=== PATIENT | female | born 1985 | race Caucasian/White ===

== ENCOUNTER → 2020-09-22 | Outpatient (CLI) | payer OTHER ==
[~2020-09-22] MED LIST: LODINE CAP 300300 MG PO; PERCOCET 5/325 T1 EA PO
== END ==
LOC: KOH-I 10:08
DX: M54.5 Low back pain (principal); M51.37 Other intervertebral disc degeneration, lumbosacral region
CPT/HCPCS: 72148

== ENCOUNTER 2020-10-22 21:52 | Emergency (ER) | payer OTHER ==
[~2020-10-22 21:52] MED LIST changes: -PERCOCET 5/325 T1 EA PO
[2020-10-23 00:42] LABS: BUN/CREATININE RATIO 20 (0-10)
[2020-10-23 00:49] LABS: HEMOGLOBIN 13.9 gm/dl (12.3-15.3); RED BLOOD COUNT 4.65 M/UL (4.00-5.10); WHITE BLOOD COUNT 8.4 K/UL (4.5-11.0)
[2020-10-23] MEDS ORDERED: PERCOCET 5/325 T1 EA PO (01:42)
== END 2020-10-23 02:00 | disposition home or self-care (01) ==
LOC: ER1 21:52
PROVIDERS: Family Medicine
DX: S33.5XXA Sprain of ligaments of lumbar spine, initial encounter (principal); V49.9XXA Car occupant (driver) (passenger) injured in unspecified traffic accident, initial encounter
CPT/HCPCS: 36415; 70450; 71045; 72125; 72131; 80053; 85025; 96374; 96375; 99284

== ENCOUNTER → 2020-11-30 | Outpatient (CLI) | payer OTHER ==
[~2020-11-30] MED LIST changes: +PERCOCET 5/325 T1 EA PO
== END ==
LOC: KOH-I 12:21
DX: R05 Cough (principal); M54.2 Cervicalgia; M54.5 Low back pain; M54.6 Pain in thoracic spine; M25.512 Pain in left shoulder; M51.36 Other intervertebral disc degeneration, lumbar region; M48.061 Spinal stenosis, lumbar region without neurogenic claudication
CPT/HCPCS: 71046; 72050; 72070; 72100; 73030

== ENCOUNTER 2021-02-26 15:20 | Emergency (ER) | payer OTHER | END 2021-02-26 18:30 | disposition home or self-care (01) | LOC: ER1 15:20 | DX: S56.414A Strain of extensor muscle, fascia and tendon of left middle finger at forearm level, initial encounter (principal); S50.811A Abrasion of right forearm, initial encounter; R51.9 Headache, unspecified; Y92.410 Unspecified street and highway as the place of occurrence of the external cause; V49.40XA Driver injured in collision with unspecified motor vehicles in traffic accident, initial encounter; F17.290 Nicotine dependence, other tobacco product, uncomplicated | CPT/HCPCS: 70450; 73090; 73130; 99284 ==

== ENCOUNTER 2021-04-15 19:54 | Emergency (ER) | payer OTHER | END 2021-04-15 23:30 | disposition home or self-care (01) | LOC: ER1 19:54 | DX: H92.03 Otalgia, bilateral (principal); J02.9 Acute pharyngitis, unspecified; Z20.822 Contact with and (suspected) exposure to COVID-19; F17.290 Nicotine dependence, other tobacco product, uncomplicated | CPT/HCPCS: 87081; 87880; 99283; U0002 ==

== ENCOUNTER → 2021-05-04 | Outpatient (CLI) | payer OTHER | LOC: KOH-I 10:09 | DX: R22.1 Localized swelling, mass and lump, neck (principal); E04.1 Nontoxic single thyroid nodule | CPT/HCPCS: 76536 ==

== ENCOUNTER 2021-05-19 16:46 | Emergency (ER) | payer OTHER | END 2021-05-19 21:14 | disposition home or self-care (01) | LOC: ER1 16:46 | DX: Z23 Encounter for immunization (principal); U07.1 COVID-19; I10 Essential (primary) hypertension; F17.290 Nicotine dependence, other tobacco product, uncomplicated; Z90.49 Acquired absence of other specified parts of digestive tract | CPT/HCPCS: 71045; 84703; 93005; 99284; M0243 ==

== ENCOUNTER 2021-05-27 17:30 | Emergency (ER) | payer OTHER ==
[~2021-05-27] VITALS: Ht 160 cm; Wt 84.4 kg
== END 2021-05-27 19:12 | disposition home or self-care (01) ==
LOC: ER1 17:30
DX: U07.1 COVID-19 (principal); Z23 Encounter for immunization; F17.290 Nicotine dependence, other tobacco product, uncomplicated
CPT/HCPCS: 71045; 99284; M0243

== ENCOUNTER 2021-06-11 01:50 | Emergency (ER) | payer OTHER ==
[2021-06-11 04:26] LABS: HEMOGLOBIN 13.5 gm/dl (12.3-15.3); RED BLOOD COUNT 4.57 M/UL (4.00-5.10); WHITE BLOOD COUNT 8.9 K/UL (4.5-11.0)
[2021-06-11 04:43] LABS: BUN/CREATININE RATIO 16 (0-10)
[2021-06-11] MEDS ORDERED: MEDROL DOSEPAK 24 MG PO (04:58)
[2021-06-11] MEDS ORDERED: CORTIZONE-1057 G1 TP (04:58)
== END 2021-06-11 05:50 | disposition home or self-care (01) ==
LOC: ER1 01:50
PROVIDERS: Physician Assistant Medical
DX: S60.561A Insect bite (nonvenomous) of right hand, initial encounter (principal); R51.9 Headache, unspecified; W57.XXXA Bitten or stung by nonvenomous insect and other nonvenomous arthropods, initial encounter
CPT/HCPCS: 80053; 85025; 96374; 99284; J1885; J7030

== ENCOUNTER 2021-07-03 05:32 | Emergency (ER) | payer OTHER ==
[~2021-07-03 05:32] MED LIST changes: +CORTIZONE-1057 G1 TP; +MEDROL DOSEPAK 24 MG PO
[2021-07-03 08:15] LABS: HEMOGLOBIN 13.2 gm/dl (12.3-15.3); RED BLOOD COUNT 4.49 M/UL (4.00-5.10); WHITE BLOOD COUNT 7.1 K/UL (4.5-11.0)
[2021-07-03 08:35] LABS: BUN/CREATININE RATIO 18 (0-10)
[2021-07-03] MEDS ORDERED: ANAPROX DS550 MG PO (10:05)
[2021-07-03] MEDS ORDERED: ONDANSETRON ODT4 MG SL (10:05)
== END 2021-07-03 10:29 | disposition home or self-care (01) ==
LOC: ER1 05:32
PROVIDERS: Physician Assistant
DX: R51.9 Headache, unspecified (principal); H57.13 Ocular pain, bilateral; R10.30 Lower abdominal pain, unspecified; R09.81 Nasal congestion; F17.290 Nicotine dependence, other tobacco product, uncomplicated; Z20.822 Contact with and (suspected) exposure to COVID-19; Z96.0 Presence of urogenital implants; Z90.49 Acquired absence of other specified parts of digestive tract
CPT/HCPCS: 80048; 81001; 84703; 85025; 87086; 96372; 96374; 96375; 99283; J1200; J1885; J2765; J3030; J7030; U0002

== ENCOUNTER 2021-07-13 21:22 | Emergency (ER) | payer OTHER ==
[~2021-07-13 21:22] MED LIST changes: +ANAPROX DS550 MG PO; +ONDANSETRON ODT4 MG SL
[2021-07-14] MEDS ORDERED: MOBIC15 MG PO (01:36)
[2021-07-14] MEDS ORDERED: CYCLOBENZAPRINE10 MG PO (01:36)
== END 2021-07-14 02:22 | disposition home or self-care (01) ==
LOC: ER1 21:22
DX: S32.2XXA Fracture of coccyx, initial encounter for closed fracture (principal); S09.90XA Unspecified injury of head, initial encounter; S16.1XXA Strain of muscle, fascia and tendon at neck level, initial encounter; S20.229A Contusion of unspecified back wall of thorax, initial encounter; F17.290 Nicotine dependence, other tobacco product, uncomplicated; S40.011A Contusion of right shoulder, initial encounter; W10.9XXA Fall (on) (from) unspecified stairs and steps, initial encounter
CPT/HCPCS: 70450; 72072; 72100; 72125; 72220; 73030; 99284

== ENCOUNTER 2021-09-10 04:51 | Emergency (ER) | payer OTHER ==
[~2021-09-10 04:51] MED LIST changes: +CYCLOBENZAPRINE10 MG PO; +MOBIC15 MG PO
[2021-09-10] MEDS ORDERED: PHENERGAN 12.12.5 M1 PO (05:20)
== END 2021-09-10 05:47 | disposition home or self-care (01) ==
LOC: ER1 04:51
DX: R51.9 Headache, unspecified (principal); R03.0 Elevated blood-pressure reading, without diagnosis of hypertension; R11.0 Nausea; Z86.69 Personal history of other diseases of the nervous system and sense organs
CPT/HCPCS: 96372; 99283; J1885

== ENCOUNTER 2021-09-16 12:06 | Emergency (ER) | payer OTHER ==
[~2021-09-16 12:06] MED LIST changes: +PHENERGAN 12.12.5 M1 PO
[2021-09-16 14:45] LABS: HEMOGLOBIN 13.8 gm/dl (12.3-15.3); RED BLOOD COUNT 4.84 M/UL (4.00-5.10); WHITE BLOOD COUNT 7.1 K/UL (4.5-11.0)
[2021-09-16 15:10] LABS: BUN/CREATININE RATIO 24 (0-10)
[2021-09-16] MEDS ORDERED: AZITHROMYCIN250 MG PO (16:09)
== END 2021-09-16 16:17 | disposition home or self-care (01) ==
LOC: ER1 12:06
PROVIDERS: Emergency Medicine
DX: R05.9 Cough, unspecified (principal); E87.6 Hypokalemia; Z20.822 Contact with and (suspected) exposure to COVID-19; Z90.49 Acquired absence of other specified parts of digestive tract; F17.290 Nicotine dependence, other tobacco product, uncomplicated
CPT/HCPCS: 71046; 80053; 82550; 82553; 83874; 84484; 85025; 85379; 93005; 99283; U0002

== ENCOUNTER 2021-12-10 21:05 | Emergency (ER) | payer OTHER ==
[~2021-12-10 21:05] MED LIST changes: +AZITHROMYCIN250 MG PO
[2021-12-10 23:09] LABS: HEMOGLOBIN 13.4 gm/dl (12.3-15.3); RED BLOOD COUNT 4.54 M/UL (4.00-5.10); WHITE BLOOD COUNT 9.2 K/UL (4.5-11.0)
[2021-12-10 23:23] LABS: BUN/CREATININE RATIO 14 (0-10)
[2021-12-11] MEDS ORDERED: MACROBID 100 M100 MG PO (00:05)
[2021-12-11] MEDS ORDERED: ZOFRAN 4 MG TAB4 MG PO (00:06)
== END 2021-12-11 00:39 | disposition home or self-care (01) ==
LOC: ER1 21:05
PROVIDERS: Physician Assistant
DX: R05.9 Cough, unspecified (principal); N39.0 Urinary tract infection, site not specified; F17.290 Nicotine dependence, other tobacco product, uncomplicated; Z20.822 Contact with and (suspected) exposure to COVID-19
CPT/HCPCS: 0240U; 71045; 80053; 81001; 84703; 85025; 87086; 96374; 99283; J1885

== ENCOUNTER 2022-01-18 01:55 | Emergency (ER) | payer OTHER ==
[~2022-01-18 01:55] MED LIST changes: +MACROBID 100 M100 MG PO; +ZOFRAN 4 MG TAB4 MG PO
[2022-01-18 03:29] LABS: HEMOGLOBIN 13.6 gm/dl (12.3-15.3); RED BLOOD COUNT 4.65 M/UL (4.00-5.10); WHITE BLOOD COUNT 7.2 K/UL (4.5-11.0)
[2022-01-18 03:37] LABS: BUN/CREATININE RATIO 17 (0-10)
[2022-01-18] MEDS ORDERED: IBUPROFEN600 MG PO (04:59)
[2022-01-18] MEDS ORDERED: OMNICEF 300 MG300 MG PO (04:59)
== END 2022-01-18 05:55 | disposition home or self-care (01) ==
LOC: ER1 01:55
PROVIDERS: Physician Assistant
DX: M79.662 Pain in left lower leg (principal); N39.0 Urinary tract infection, site not specified; N83.202 Unspecified ovarian cyst, left side; F17.290 Nicotine dependence, other tobacco product, uncomplicated
CPT/HCPCS: 73590; 80053; 81001; 85025; 87086; 96372; 99284; J0696

== ENCOUNTER 2022-02-22 22:32 | Emergency (ER) | payer OTHER ==
[~2022-02-22 22:32] MED LIST changes: +IBUPROFEN600 MG PO; +OMNICEF 300 MG300 MG PO
== END 2022-02-23 00:58 | disposition home or self-care (01) ==
LOC: ER1 22:32
DX: R51.9 Headache, unspecified (principal); F17.290 Nicotine dependence, other tobacco product, uncomplicated
CPT/HCPCS: 70450; 99284

== ENCOUNTER → 2022-05-03 | Outpatient (CLI) | payer OTHER | LOC: KOH-I 11:34 | DX: M54.2 Cervicalgia (principal); M54.6 Pain in thoracic spine; M54.50 Low back pain, unspecified; R05.9 Cough, unspecified; M47.816 Spondylosis without myelopathy or radiculopathy, lumbar region | CPT/HCPCS: 71046; 72040; 72070; 72100 ==

== ENCOUNTER 2022-05-23 03:02 | Emergency (ER) | payer OTHER | END 2022-05-23 06:04 | disposition home or self-care (01) | LOC: ER1 03:02 | DX: R51.9 Headache, unspecified (principal); I10 Essential (primary) hypertension; Z90.49 Acquired absence of other specified parts of digestive tract; F17.290 Nicotine dependence, other tobacco product, uncomplicated | CPT/HCPCS: 99283 ==